=== PATIENT | male | born 1975 | race Caucasian/White ===

== ENCOUNTER 2020-12-03 12:25 | Emergency (ER) | payer OTHER ==
[~2020-12-03] VITALS: Wt 90.7 kg
[~2020-12-03 12:25] MED LIST: ANAPROX DS550 MG PO; CARDIZEM CD240 MG PO; HYDROCODONE BIT1 T11 PO; LOTENSIN20 MG PO; MOTRIN800 MG PO; VICODIN 5/500 505 MG PO
[2020-12-03 12:32] VITALS: BP 146/84
[2020-12-03 13:13] LABS: BASO % 0.4 % (0.0-1.0); EOS % 0.4 % (1.0-4.0); HEMATOCRIT 42.4 % (42.0-52.0); LYMPH # 1.9 10*3/uL (1.3-4.4); LYMPH % 17.3 % (27.0-41.0); MEAN CORPUSCULAR HGB 30.4 pg (27.0-31.0); MEAN CORPUSCULAR HGB CONC 33.7 g/dl (33.0-37.0); MEAN PLATELET VOLUME 9.2 fl (9.6-12.3); MONO # 0.5 10*3/uL (0.1-1.0); MONO % 4.5 % (3.0-9.0); NEUT # 8.5 10*3/uL (2.3-7.9); NEUT % 77.2 % (47.0-73.0); PLATELET COUNT AUTOMATED 294 10*3/uL (130-400); RED BLOOD COUNT 4.71 10*6/uL (4.50-5.90); RED CELL DISTRI WIDTH 12.5 % (0-14.5)
[2020-12-03 13:32] LABS: ALKALINE PHOSPHATASE 90 U/L (45-117); BUN 13 mg/dl (7-24); CHLORIDE 107 mmol/L (98-107); CREATININE 0.76 mg/dL (0.70-1.30); LIPASE 138 U/L (73-393); SGOT/AST 15 IU/L (3-35); SGPT/ALT 25 U/L (12-78); SODIUM 139 mmol/L (136-145); TOTAL PROTEIN 7.2 gm/dL (6.4-8.2)
[2020-12-03] MEDS ORDERED: Motrin,Rufen800 MG PO (14:54)
[2020-12-03] MEDS ORDERED: PREDNISONE20 M1 PO (14:54)
[2020-12-03] MEDS ORDERED: CYCLOBENZAPRINE5 M3 PO (14:54)
== END 2020-12-03 14:56 | disposition home or self-care (01) ==
LOC: ED 12:25
PROVIDERS: Physician Assistant
DX: G89.29 Other chronic pain (principal); M54.5 Low back pain; Z88.0 Allergy status to penicillin; Z88.2 Allergy status to sulfonamides; Z79.899 Other long term (current) drug therapy